=== PATIENT | female | born 1995 | race Caucasian/White ===

== ENCOUNTER 2017-12-23 22:03 | Emergency (ER) | payer MEDICAID, OTHER ==
[2017-12-23] MEDS: ACETAMINOPHEN 325 MG TAB PO (22:47)
[2017-12-23 23:02] LABS: ADD MAN DIFF? NO
[2017-12-23 23:06] LABS: WHITE BLOOD COUNT 9.3 10^3/ul (4.8-10.8)
[2017-12-23 23:06] LABS: BASOPHILS % 0.3 % (0.0-2.0); EOSINOPHILS # 0.1 10^3/ul (0.0-0.5); HEMATOCRIT 40.7 % (37.0-47.0); HEMOGLOBIN 13.5 g/dl (12.0-16.0); LYMPHOCYTES # 3.1 10^3/ul (0.8-2.9); MEAN CORPUSCULAR HEMOGLOBIN 28.8 pg (29.0-33.0); MEAN CORPUSCULAR HGB CONC 33.2 g/dl (32.0-37.0); MEAN CORPUSCULAR VOLUME 86.8 fl (82.0-101.0); MEAN PLATELET VOLUME 10.9 fl (7.4-10.4); MONOCYTE # 0.5 10^3/ul (0.3-0.9); MONOCYTES % 5.3 % (0.0-11.0); NEUTROPHIL # 5.6 10^3/ul (1.6-7.5); PLATELET COUNT 247 10^3/UL (140-415); RED BLOOD COUNT 4.69 10^6/ul (4.20-5.40)
[2017-12-23 23:08] LABS: ADD UMIC YES; UR ASCORBIC ACID 40 mg/dL (NEGATIVE); UR BACTERIA FEW /HPF (NONE SEEN); UR BILIRUBIN (Dip) NEGATIVE (NEGATIVE); UR BLOOD (Dip) 3+ mg/dL (NEGATIVE); UR CLARITY SLIGHTLY CLOUDY (CLEAR); UR COLOR YELLOW (YELLOW); UR GLUCOSE (Dip) NEGATIVE (NEGATIVE); UR KETONES (Dip) NEGATIVE (NEGATIVE); UR LEUKOCYTE ESTERASE (Dip) 1+ Leu/ul (NEGATIVE); UR NITRITE (Dip) NEGATIVE (NEGATIVE); UR RBC 3 /HPF (0-5); UR SPECIFIC GRAVITY (Dip) 1.017 (1.003-1.030); UR SQUAMOUS EPITHELIAL CELL FEW /HPF (FEW); UR TOTAL PROTEIN (Dip) 1+ mg/dl (NEGATIVE); UR UROBILINOGEN (Dip) NEGATIVE (NEGATIVE); UR WBC 12 /HPF (0-5)
[2017-12-23 23:21] LABS: ALANINE AMINOTRANSFERASE 45 IU/L (13-69); ALBUMIN 4.5 g/dl (3.3-4.9); ALKALINE PHOSPHATASE 131 IU/L (42-121); ANION GAP 16 (8-16); ASPARTATE AMINO TRANSFERASE 21 IU/L (15-46); BILIRUBIN,INDIRECT 0.3 mg/dl (0-1.1); BILIRUBIN,TOTAL 0.3 mg/dl (0.2-1.3); BLOOD UREA NITROGEN 10 mg/dl (7-20); CALCIUM 9.6 mg/dl (8.4-10.2); CARBON DIOXIDE 26 mmol/L (21-31); CHLORIDE 103 mmol/L (97-110); CREATININE 0.64 mg/dl (0.44-1.00); GLUCOSE 106 mg/dl (70-220); POTASSIUM 3.8 mmol/L (3.5-5.1); SODIUM 141 mmol/L (135-144); TOTAL PROTEIN 7.3 g/dl (6.1-8.1)
[2017-12-23 23:23] LABS: INR 0.85; PROTIME 11.7 Sec (11.9-14.9); PT RATIO 0.9
[2017-12-23 23:24] LABS: PARTIAL THROMBOPLASTIN TIME 27.7 Sec (25.0-35.0)
[2017-12-24] MEDS: CEFTRIAXONE 1 GM INJ IM (01:27)
[2017-12-24] MEDS: LIDOCAINE 1% (MDV) 10 ML INJ INJ (01:27)
== END 2017-12-24 01:40 | disposition home or self-care (01) ==
LOC: FTE 12-24 01:40
DX: O20.9 Hemorrhage in early pregnancy, unspecified (principal); Z3A.01 Less than 8 weeks gestation of pregnancy
CPT/HCPCS: 36415; 76801; 76817; 80053; 81001; 84702; 85025; 85610; 85730; 86900; 86901; 96372; 99285-25

== ENCOUNTER 2017-12-26 11:58 | Emergency (ER) | payer MEDICAID ==
[2017-12-26 12:30] LABS: ADD MAN DIFF? NO
[2017-12-26 12:32] LABS: WHITE BLOOD COUNT 8.9 10^3/ul (4.8-10.8)
[2017-12-26 12:32] LABS: BASOPHILS % 0.3 % (0.0-2.0); EOSINOPHILS # 0.1 10^3/ul (0.0-0.5); EOSINOPHILS % 0.9 % (0.0-7.0); HEMATOCRIT 38.4 % (37.0-47.0); HEMOGLOBIN 12.9 g/dl (12.0-16.0); LYMPHOCYTES # 2.1 10^3/ul (0.8-2.9); MEAN CORPUSCULAR HGB CONC 33.6 g/dl (32.0-37.0); MEAN CORPUSCULAR VOLUME 86.3 fl (82.0-101.0); MEAN PLATELET VOLUME 10.4 fl (7.4-10.4); MONOCYTE # 0.5 10^3/ul (0.3-0.9); MONOCYTES % 5.2 % (0.0-11.0); NEUTROPHIL # 6.3 10^3/ul (1.6-7.5); NEUTROPHILS % 70.3 % (39.0-77.0); PLATELET COUNT 235 10^3/UL (140-415); RED BLOOD COUNT 4.45 10^6/ul (4.20-5.40); RED CELL DISTRIBUTION WIDTH 13.1 % (11.5-14.5)
[2017-12-26 13:28] LABS: ADD UMIC YES; UR ASCORBIC ACID 20 mg/dL (NEGATIVE); UR BACTERIA FEW /HPF (NONE SEEN); UR BILIRUBIN (Dip) NEGATIVE (NEGATIVE); UR BLOOD (Dip) 3+ mg/dL (NEGATIVE); UR CALCIUM OXALATE CRYSTAL MANY /HPF (NONE SEEN); UR CLARITY CLOUDY (CLEAR); UR COLOR RED (YELLOW); UR GLUCOSE (Dip) NEGATIVE (NEGATIVE); UR HYALINE CAST FEW /HPF (NONE SEEN); UR KETONES (Dip) NEGATIVE (NEGATIVE); UR LEUKOCYTE ESTERASE (Dip) 2+ Leu/ul (NEGATIVE); UR NITRITE (Dip) NEGATIVE (NEGATIVE); UR RBC > 182 /HPF (0-5); UR SQUAMOUS EPITHELIAL CELL FEW /HPF (FEW); UR TOTAL PROTEIN (Dip) 2+ mg/dl (NEGATIVE); UR UROBILINOGEN (Dip) NEGATIVE (NEGATIVE); UR WBC > 182 /HPF (0-5)
== END 2017-12-26 16:05 | disposition home or self-care (01) ==
LOC: FTE 16:05
DX: O03.4 Incomplete spontaneous abortion without complication (principal)
CPT/HCPCS: 36415; 76801; 76817; 81001; 84702; 85025; 99284-25

== ENCOUNTER 2017-12-27 04:06 | Emergency (ER) | payer MEDICAID ==
[2017-12-27] MEDS: HYDROCODONE/APAP (10/325) TAB PO (04:42)
[2017-12-27] MEDS: ONDANSETRON (ODT) 4 MG TAB ODT (04:42)
== END 2017-12-27 05:04 | disposition home or self-care (01) ==
LOC: E/R 04:06
DX: O03.9 Complete or unspecified spontaneous abortion without complication (principal)
CPT/HCPCS: 99284; Z7502

== ENCOUNTER 2018-12-09 14:51 | Inpatient (IN) | payer MEDICAID ==
[~2018-12-09 14:51] MED LIST: EPHEDrine 25 MG/5 ML SYG; OXYTOCIN 30 UNITS/LR 500 ML BAG IV; PHENYLephrine (100 MCG/ML) 10ML SYG
[2018-12-09] MEDS ORDERED: CARBOPROST 250 MCG INJ IM ×2 (17:00→21:30)
[2018-12-09] MEDS ORDERED: MISOPROSTOL 200 MCG TAB PR ×2 (17:00→21:30)
[2018-12-09] MEDS ORDERED: OXYTOCIN 30 UNITS/LR 500 ML IV ×2 (17:00→21:30)
[2018-12-09] MEDS ORDERED: CEFAZOLIN 2 GM/50 ML (PMX) 50 ML IVPB (17:00)
[2018-12-09] MEDS ORDERED: METHYLERGONOVINE 0.2 MG INJ IM ×2 (17:00→21:30)
[2018-12-09] MEDS: LACTATED RINGER'S 1,000 ML IV ×2 (17:16→19:36)
[2018-12-09] MEDS: CEFTRIAXONE 2 GM/50 ML (PMX) 50 ML IVPB (17:16)
[2018-12-09 17:17] LABS: ADD MAN DIFF? NO
[2018-12-09] MEDS: SOD CHLORIDE 0.9% 1,000 ML IV (17:18)
[2018-12-09 17:23] LABS: WHITE BLOOD COUNT 9.7 10^3/ul (4.8-10.8)
[2018-12-09 17:23] LABS: BASOPHILS % 0.4 % (0.0-2.0); EOSINOPHILS # 0.1 10^3/ul (0.0-0.5); EOSINOPHILS % 0.5 % (0.0-7.0); HEMATOCRIT 40.2 % (37.0-47.0); HEMOGLOBIN 13.4 g/dl (12.0-16.0); LYMPHOCYTES # 2.5 10^3/ul (0.8-2.9); MEAN CORPUSCULAR HEMOGLOBIN 29.8 pg (29.0-33.0); MEAN CORPUSCULAR HGB CONC 33.3 g/dl (32.0-37.0); MEAN CORPUSCULAR VOLUME 89.5 fl (82.0-101.0); MEAN PLATELET VOLUME 12.3 fl (7.4-10.4); MONOCYTE # 0.7 10^3/ul (0.3-0.9); MONOCYTES % 7.2 % (0.0-11.0); NEUTROPHIL # 6.3 10^3/ul (1.6-7.5); NEUTROPHILS % 65.1 % (39.0-77.0); PLATELET COUNT 186 10^3/UL (140-415); RED BLOOD COUNT 4.49 10^6/ul (4.20-5.40); RED CELL DISTRIBUTION WIDTH 14.9 % (11.5-14.5)
[2018-12-09 17:40] LABS: INR 0.81; PROTIME 11.3 Sec (11.9-14.9); PT RATIO 0.9
[2018-12-09 17:41] LABS: PARTIAL THROMBOPLASTIN TIME 23.9 Sec (23.0-35.0)
[2018-12-09] MEDS ORDERED: ONDANSETRON 4 MG INJ (20:05)
[2018-12-09] MEDS ORDERED: METOCLOPRAMIDE 10 MG INJ (20:05)
[2018-12-09] MEDS ORDERED: morphine SULFATE/PF (10 MG/10 ML) INJ (20:36)
[2018-12-09] MEDS ORDERED: FENTAnyl 50 MCG/ML VIAL (21:17)
[2018-12-09] MEDS ORDERED: NACL 0.9% 3 ML SYG IV (21:30)
[2018-12-09] MEDS ORDERED: FENTAnyl 50 MCG/ML VIAL IV ×3 (22:30)
[2018-12-09] MEDS ORDERED: HYDROmorphONE 0.5 MG/0.5 ML SYG IV ×2 (22:30)
[2018-12-09] MEDS ORDERED: ONDANSETRON 4 MG INJ IV (22:30)
[2018-12-09] MEDS ORDERED: ALBUTEROL 0.083% (NEB) 2.5 MG/3 ML AMP HHN (22:30)
[2018-12-09] MEDS ORDERED: HYDROmorphONE 1 MG/5 ML IV SYRINGE IV ×3 (22:30)
[2018-12-09] MEDS ORDERED: DIPHENHYDRAMINE 50 MG INJ IV ×2 (22:30)
[2018-12-09] MEDS ORDERED: KETOROLAC 30 MG INJ IV (22:30)
[2018-12-09] MEDS ORDERED: NALOXONE (0.4 MG/ML) INJ IV (22:30)
[2018-12-09] MEDS: METOCLOPRAMIDE 10 MG INJ IV (22:55)
[2018-12-09] MEDS: ONDANSETRON 4 MG INJ IV (22:55)
[2018-12-09] MEDS: OXYTOCIN 30 UNITS/LR 500 ML IV (22:57)
[2018-12-10] MEDS: KETOROLAC 30 MG INJ IV ×2 (00:44→18:27)
[2018-12-10] MEDS: LANOLIN HPA 1 PKT TOP (00:46)
[2018-12-10] MEDS ORDERED: CEFAZOLIN 2 GM/50 ML (PMX) 50 ML IVPB (01:00)
[2018-12-10] MEDS: CEFAZOLIN 2 GM/50 ML (PMX) 50 ML IVPB ×3 (03:43→20:34)
[2018-12-10] MEDS: OXYTOCIN 30 UNITS/LR 500 ML IV (05:56)
[2018-12-10 07:46] LABS: ADD MAN DIFF? NO
[2018-12-10 07:51] LABS: WHITE BLOOD COUNT 9.9 10^3/ul (4.8-10.8)
[2018-12-10 07:51] LABS: BASOPHILS % 0.3 % (0.0-2.0); EOSINOPHILS % 0.3 % (0.0-7.0); HEMATOCRIT 34.1 % (37.0-47.0); HEMOGLOBIN 11.4 g/dl (12.0-16.0); LYMPHOCYTES # 1.9 10^3/ul (0.8-2.9); LYMPHOCYTES % 19.7 % (15.0-51.0); MEAN CORPUSCULAR HEMOGLOBIN 30.1 pg (29.0-33.0); MEAN CORPUSCULAR HGB CONC 33.4 g/dl (32.0-37.0); MEAN PLATELET VOLUME 12.2 fl (7.4-10.4); MONOCYTE # 0.7 10^3/ul (0.3-0.9); MONOCYTES % 6.6 % (0.0-11.0); NEUTROPHIL # 7.2 10^3/ul (1.6-7.5); NEUTROPHILS % 72.4 % (39.0-77.0); PLATELET COUNT 146 10^3/UL (140-415); RED BLOOD COUNT 3.79 10^6/ul (4.20-5.40); RED CELL DISTRIBUTION WIDTH 15.1 % (11.5-14.5)
[2018-12-10] MEDS: SENNA/DOCUSATE NA (8.6MG/50MG) TAB PO ×2 (09:09→20:34)
[2018-12-10 09:39] LABS: HEPATITIS B SURFACE ANTIGEN NEGATIVE (NEGATIVE)
[2018-12-10] MEDS: LACTATED RINGER'S 1,000 ML IV ×2 (10:19→16:44)
[2018-12-10 15:50] LABS: RAPID PLASMA REAGIN NONREACTIVE (NR)
[2018-12-10] MEDS: OXYCODONE/ACETAMINOPHEN (5/325) TAB PO (21:45)
[2018-12-10] MEDS: IBUPROFEN 600 MG TAB PO (23:48)
[2018-12-11] MEDS: LACTATED RINGER'S 1,000 ML IV ×3 (00:44→16:44)
[2018-12-11] MEDS: OXYCODONE/ACETAMINOPHEN (5/325) TAB PO ×4 (03:16→21:00)
[2018-12-11] MEDS: IBUPROFEN 600 MG TAB PO ×3 (06:09→17:50)
[2018-12-11] MEDS: SENNA/DOCUSATE NA (8.6MG/50MG) TAB PO ×2 (10:05→20:59)
[2018-12-12] MEDS: IBUPROFEN 600 MG TAB PO ×3 (00:25→12:42)
[2018-12-12] MEDS: LACTATED RINGER'S 1,000 ML IV (00:44)
[2018-12-12] MEDS: OXYCODONE/ACETAMINOPHEN (5/325) TAB PO ×2 (02:27→08:30)
[2018-12-12] MEDS: SENNA/DOCUSATE NA (8.6MG/50MG) TAB PO (08:29)
== END 2018-12-12 14:10 | disposition home or self-care (01) | DRG 788 ==
LOC: OBT 14:51 → L-D 14:52 → OBT 16:45 → L-D 16:45 → PP1 23:56
PROVIDERS: Obstetrics & Gynecology
PROC: 10D00Z1 Extraction of Products of Conception, Low, Open Approach (ICD-10-PCS; principal; 2018-12-09 16:45)
PROC: 3E033VJ Introduction of Other Hormone into Peripheral Vein, Percutaneous Approach (ICD-10-PCS; 2018-12-09 16:45)
DX: O48.0 Post-term pregnancy (principal); Z3A.40 40 weeks gestation of pregnancy; Z37.0 Single live birth
CPT/HCPCS: 76815; 76818; 85025; 85610; 85730; 86592; 86850; 86900; 86901; 87340; 99464